=== PATIENT | male | born 1990 | race Caucasian/White ===

== ENCOUNTER 2022-02-19 15:29 | Emergency (ER) | payer SELFPAY ==
--- NOTE | 2022-02-19 15:31 | ED.SKABFB ---
HPI - Skin/Abscess/Foreign Bdy General Stated complaint: red streak down right arm/knot arm pit Time Seen by Provider: 02/19/22 15:31 Source: patient and RN notes reviewed History of Present Illness HPI narrative: Patient is a 31-year-old male who presents the urgent care with complaints of a red streak up the right arm extending from the thumb to the right axilla. Patient states that he noticed the soreness 2 days ago and the redness today. Patient has not taken anything [id number] for his symptoms. Patient denies of any IV drug use. Denies of any fevers, nausea, vomiting. No other acute complaints. No acute distress noted. Patient aware the plan of care. Some parts of this dictation were generated by voice recognition software and may contain typographical and/or grammatical inaccuracies. Related Data Allergies Allergy/AdvReac Type Severity Reaction Status Date / Time No Known Allergies Allergy Verified 02/19/22 15:51 Review of Systems Review of Systems: CONSTITUTIONAL: Denies fever, chills, or sweats. EYES: Denies visual changes, redness, or discharge. ENT: Denies rhinorrhea, congestion, sore throat, or otalgia. CARDIOVASCULAR: Denies chest pain, palpitations, or edema. RESPIRATORY: Denies cough or dyspnea. GASTROINTESTINAL: Denies abdominal pain, nausea, vomiting, or diarrhea. GENITOURINARY: Denies dysuria or hematuria. SKIN: Reports of red streaking from the right thumb to the right axilla MUSCULOSKELETAL: Denies back pain, joint pain, or myalgia. NEUROLOGIC: Denies headache, numbness, or weakness. All other systems reviewed are negative, except as documented in HPI. PMFSH Comments At the time of my signature, I reviewed and agree with the nursing past medical, surgical, social, and family history. There is no relevant family history pertinent to the patient complaint. Exam Narrative: GENERAL: This is a well-nourished, well-developed patient, in no apparent distress. HEAD: normocephalic, atraumatic. EYES: PERRL. Sclera clear/white. Vision is grossly intact. EARS: External ears normal NOSE: External nose normal with no obvious nasal discharge, nares without redness, no rhinorrhea. THROAT: Mucous membranes moist NECK: Neck supple CARDIOVASCULAR: Regular rate and rhythm without murmurs, gallops, or rubs. RESPIRATORY: Clear to auscultation. Breath sounds equal bilaterally. No wheezes, rales, or rhonchi. SKIN: Mild erythema noted to the right thumb on with red line streaking from the right thumb to the right axilla NEURO: awake, alert, and oriented to person, place and time. There were no obvious focal neurologic abnormalities. EXTREMITIES: No clubbing, cyanosis, or edema. Course Course Level of Care: Express Care Visit Vital Signs Vital signs: Vital Signs Temperature 98.4 F 02/19/22 15:33 Pulse Rate 125 H 02/19/22 15:33 Respiratory Rate 16 02/19/22 15:33 Blood Pressure 134/85 02/19/22 15:33 Pulse Oximetry 97 02/19/22 15:33 Temperature 98.4 F 02/19/22 15:33 Pulse Rate 125 H 02/19/22 15:33 Respiratory Rate 16 02/19/22 15:33 Blood Pressure 134/85 02/19/22 15:33 Pulse Oximetry 97 02/19/22 15:33 Reviewed MDM - Skin/Abscess/Foreign Bdy MDM Narrative Medical decision making narrative: Advised the patient to complete the oral antibiotic regimen as prescribed. Be sure to eat and drink with the medication. If you develop any increase in redness associated with fever, nausea or vomiting?go directly to the emergency room. Antibiotics and the IM injection from the facility should cover any infection. However, blood work is not available at our facility and may be necessary if symptoms do not improve. Follow-up with your PCP within 2 to 5 days or for worsening symptoms or failure to improve. Differential Diagnosis Differential diagnosis: Likely abscess of skin or subcutaneous tissue, dermatophytosis, herpes zoster, allergic reaction to drug and insect bites Critical Care Time Critic
[2022-02-19 15:33] VITALS: BP 134/85; PULSE 125; RESP 16; TEMP 36.9; O2SAT 97
[2022-02-19] MEDS: cefTRIAXone 1 GM VIAL IM (16:05)
[2022-02-19] MEDS: LIDOCAINE HCL 1% LOCAL INJ 10 ML VIAL 2.1 ML INFILTRATE (16:05)
== END 2022-02-19 16:30 | disposition home or self-care (01) ==
PROVIDERS: Emergency Provider Nurse Practitioner Family
DX: I89.1 Lymphangitis (principal)
CPT/HCPCS: 96372; 99213; G0463; J0696